=== PATIENT | male | born 1975 | race Two or more races ===

== ENCOUNTER 2023-06-15 08:10 | Emergency (ER) | payer BC, OTHER ==
[2023-06-15 08:22] VITALS: BP 129/89; PULSE 89; RESP 18; TEMP 97.9; BMI 26.9
[2023-06-15 10:33] LABS: BASO % 1.1 % (0-2.0); HEMATOCRIT 43.5 % (35.4-49); LYMPH % 37.9 % (8-40); MCH 30.3 pg (25.7-33.7); MCHC 34.5 g/dl (32.0-35.9); MEAN CELL VOLUME 87.7 fl (80-96); MEAN PLT VOLUME 8.5 fl (7.5-11.1); MONO % 7.8 % (3.8-10.2); NEUT % 51.2 % (42.8-82.8); PLATELET COUNT 288 10^3/uL (134-434); RBC 4.96 M/mm3 (4.00-5.60); RDW 13.3 % (11.9-15.9); WHITE BLOOD COUNT 6.8 K/mm3 (4.0-10.0)
[2023-06-15 10:52] LABS: POTASSIUM 3.7 mmol/L (3.5-5.1)
[2023-06-15 10:54] LABS: BLOOD UREA NITROGEN 12.7 mg/dL (7-18); CALCIUM 9.5 mg/dL (8.5-10.1)
[2023-06-15 10:55] LABS: ALBUMIN 3.5 g/dl (3.4-5.0)
[2023-06-15 10:58] LABS: CREATININE 0.8 mg/dL (0.55-1.3)
[2023-06-15 11:00] LABS: TOT PROT 6.7 g/dl (6.4-8.2)
[2023-06-15 11:03] LABS: BILIRUBIN,TOTAL 0.8 mg/dL (0.2-1)
== END 2023-06-15 11:33 | disposition home or self-care (01) ==
LOC: JER 08:10
DX: R35.89 Other polyuria (principal); R63.1 Polydipsia; R73.9 Hyperglycemia, unspecified
CPT/HCPCS: 36415; 80053; 82962; 85025; 99283-25